=== PATIENT | female | born 1985 | race Caucasian/White ===

== ENCOUNTER → 2016-08-02 | Outpatient (REF) | payer BC | LOC: M SFHCCLAY 11:21 | PROVIDERS: ATTEND Nurse Practitioner Family | DX: R53.83 Other fatigue (principal); R50.9 Fever, unspecified ==

== ENCOUNTER 2024-02-13 14:06 | Emergency (ER) | payer BC ==
[~2024-02-13] VITALS: Ht 149.9 cm; Wt 46.1 kg
[2024-02-13 14:10] VITALS: BP 127/78; TEMP 98; O2SAT 100
[2024-02-13] MEDS: FLUORESCEIN OPHTH 1MG STRIP OS ONE (16:36)
[2024-02-13] MEDS: PROPARACAINE 0.5% OPHTH SOL 15ML OS ONE (16:36)
[2024-02-13] MEDS: BOOSTRIX VACCINE (TETANUS/DIPHTH/ACEL. PERTUSSIS) 0.5ML SYR IM ONE (17:15)
== END 2024-02-13 17:18 | disposition home or self-care (01) ==
LOC: M ED 14:06
DX: S05.02XA Injury of conjunctiva and corneal abrasion without foreign body, left eye, initial encounter (principal); M35.00 Sjogren syndrome, unspecified; F10.10 Alcohol abuse, uncomplicated; Z88.0 Allergy status to penicillin; Z23 Encounter for immunization; Y92.009 Unspecified place in unspecified non-institutional (private) residence as the place of occurrence of the external cause; Y93.89 Activity, other specified; Y99.9 Unspecified external cause status